=== PATIENT | female | born 1930 | race Caucasian/White ===

== ENCOUNTER 2016-05-09 14:29 | Outpatient (CLI) | payer MEDICARE, BC | END 2016-05-09 14:30 | disposition home or self-care (01) | DX: Z79.899 Other long term (current) drug therapy (principal) ==

== ENCOUNTER 2016-08-25 13:05 | Outpatient (CLI) | payer MEDICARE, BC | END 2016-08-25 23:59 | DX: Z79.899 Other long term (current) drug therapy (principal) ==

== ENCOUNTER 2016-12-26 08:00 | Outpatient (CLI) | payer MEDICARE, BC ==
[2016-12-26 18:34] LABS: CREATININE 0.8 mg/dL (0.4-1.0)
[2016-12-26 19:14] LABS: BASOPHILS % (AUTO) 0.3 %; EOSINOPHILS % (AUTO) 0.5 %; HCT - HEMATOCRIT 38.6 % (37.0-47.0); HGB - HEMOGLOBIN 12.6 g/dL (12.0-16.0); LYMPHOCYTES # (AUTO) 2.5 10^3/uL (1.5-3.5); LYMPHOCYTES % (AUTO) 33.6 %; MEAN CORPUSCULAR HGB CONC 32.6 g/dL (32.0-36.0); MEAN PLATELET VOLUME 7.7 fL (7.9-10.8); MONOCYTES # (AUTO) 0.4 10^3/uL (0.0-1.0); MONOCYTES % (AUTO) 6.2 %; NEUTROPHILS # (AUTO) 4.3 10^3/uL (1.5-6.6); NEUTROPHILS % (AUTO) 59.4 %; RED BLOOD COUNT 4.33 10^6/uL (4.20-5.40); UNCORRECTED WHITE BLOOD COUNT 7.3 x10^3/uL; WHITE BLOOD COUNT 7.3 x10^3/uL (4.8-10.8)
== END 2016-12-26 08:01 | disposition home or self-care (01) ==
LOC: LAB.F 08:00
PROVIDERS: ATTEND Internal Medicine Rheumatology
DX: Z79.899 Other long term (current) drug therapy (principal)
CPT/HCPCS: 36415; 82040; 82565; 84450; 84460; 85025

== ENCOUNTER 2017-02-20 14:30 | Outpatient (CLI) | payer MEDICARE, BC ==
--- NOTE | 2017-02-20 19:47 | CONSULTATION NOTE ---
Palliative Care Consultation - Referral Referring Provider: Dr. Godfrey Casillas Time of Visit: 3262-8657 Referral setting: Home (It is a taxing and considerable effort for the patient to leave the home secondary to limited mobility and dementia) Referral Reason: Dementia - Information Sources Records reviewed: Previous records reviewed History/Review of Systems obtained from: Family ( Jeff) Exam limitations: Clinical condition (patient nonverbal and unable to participate in ROS) - History of Present Illness Brief History of Present Illness: Thank you Dr. Casillas for asking the Palliative Care Consult Team to be involved in with your patient. Established rapport and evaluation of care needs. Will follow for ongoing support. This is an 86 year old woman who presents today with advanced Alzheimers, Stage 7C. Patient is nonverbal, though does make eye contact, on good days follow cues for transfers, is able to pivot and take a few steps, on bad days less able to follow commands. Patient has been incontinent of bowel and bladder for about 2 years, still does some time toileting with her. She also needs feeding, this has been for the last 2-3 years, occasionally choking if doesn't pace feeding, but other coker has not noted any pocketing. Patient with out neuropsychiatric behaviors of agitation, anxiety, no history of wandering, and is cooperative with care. Last verbal words in August of 2016, "good night" and "see you in the morning" in response to . She does sleep through the night. Patient has "essential tremors" noted tremors upper extremities right greater than left. Patient has some restless movements through visit, in transfer wheelchair, weight shifting, taking feet on and off pedals, reports she "wiggles" down when seated in chairs. On exam right side is stiff, limited range of motion of right arm, right leg more difficult to move, denies patient has had strokes in past though this has been present for a while. Patient does some "squinting" has her wear sunglasses when out, rubs head, gets hair washed every two weeks. Unclear if patient communicating any pain behaviors. is quite devoted, they have been over 69 years, is primary caregiver with assistance from daughter who visits about monthly. Medical/Surgical History - Past Medical History Cardiovascular: reports: None Respiratory: reports: None Neuro: reports: Dementia, Tremors (essential tremors/parkinsonism) Endocrine/Autoimmune: reports: HyPOthyroidism GI: reports: GERD, Other (intermittent constipation) HOSPICE AIDE: reports: Other (unknown) : reports: Incontinence HEENT: reports: Chronic vision loss Psych: reports: None. denies: Depression, Anxiety Musculoskeletal: reports: None Derm: reports: None MRSA Hx?: No - Past Surgical History Ortho: reports: Spine surgery - Substance History Use: Uses substance without health or social issues: NONE Social History - Living Situation Living arrangement: At home Living Situation: With spouse/s.o. Support System: Has been primary caregiver, he himself is quite elderly but in reasonable health. His daughter visits monthly to provide some assistance. There is changed for many years from their son. Currently working with senior services to get 4 hours a respite a week. Is reticent to give up any of his caregiving duties. 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 Family History - Family History Family History: Mother: (both in their 90's of old age), Father: Medications/Allergies - Medications Home Medications: Ambulatory Orders Medication Instructions Recorded Confirmed Sammy Cit/Mag/D3/Zn/Gas Fitter Helper/Ferdinand/Bor 1 tab PO DAILY 02/20/17 02/20/17 [Citracal-Vit D + Magnesium Tab] Cholecalciferol (Vitamin D3) 2,000 units PO DAILY 02/20/17 02/20/17 [Vitamin D3] Donepezil HCl 20 mg PO DAILY 02/20/17 02/20/17 Levothyroxine Sodium 50 mcg PO DAILY 02/20/17 02/20/17 Mecobalamin [B-12] 1,000 mcg PO DAILY 02/20/17 02/20/17 Multivitamin W/Minerals [Theragran 1 tab PO DAILY 02/20/17 02/20/17 M] Omeprazole 20 mg PO DAILY 02/20/17 02/20/17 Primidone [Mysoline] 50 mg PO DAILY 02/20/17 02/20/17 Propranolol HCl [Innopran Xl] 120 mg PO BID 02/20/17 02/20/17 [address]ulfasalazine [Sulfasalazine Dr] 500 mg PO BID 02/20/17 02/20/17 - Allergies Allergies/Adverse Reactions: Allergies Allergy/AdvReac Type Severity Reaction Status Date / Time No Known Drug Allergies Allergy Verified 02/20/17 20:00 Review of Systems - Constitutional Constitutional: reports: Weight gain ( reports has gained weight over the last few years) - Eyes Eyes: reports: Corrective lenses (doesn't wear) - Ears, Nose & Throat Ears, Nose & Throat: reports: Other (dental hygienist provides care 3x a week, home visit) - Respiratory Respiratory: denies: Cough - Gastrointestinal Gastrointestinal: reports: Constipation (intermittent), Good appetite - Genitourinary Genitourinary: reports: Incontinence - Musculoskeletal Musculoskeletal: reports: Stiffness, Limited range of motion, Transfer issues - Integumentary Integumentary: reports: Dryness - Neurological Neurological: reports: General weakness, Memory problems - Psychiatric Psychiatric: denies: Depression, Anxiety, Delusions, Hallucinations, Aggitation , Behavior disturbances - Endocrine Endocrine: reports: Hypothyroidism - Hematologic/Lymphatic Hematologic/Lymphatic: denies: Recurrent infections - All Other Systems All Other Systems: reports: Reviewed and negative - Other Findings Other Findings: ROS supplied by Physical Exam - Vital Signs Temperature: 98.2 C Pulse Rate: 59 Respiratory Rate: 18 O2 Saturation: 99 (ra@rest) Blood Pressure: 108/52 - Physical Exam General Appearance: positive: No acute distress, Alert Eyes Bilateral: positive: Conjunctivae nml ENT: positive: No signs of dehydration Neck: positive: Trachea midline Cardiovascular: positive: Regular rate & rhythm Respiratory: positive: Diminished in bases. negative: Wheezes, Rales, Rhonchi Abdomen: positive: Soft, Nml bowel sounds Skin: positive: No symptoms Extremities: positive: No pedal edema, Other (right sided stiffness limited ROM) Neurologic/Psychiatric: positive: Weakness, Flat affect Palliative Care - POLST Patient has POLST: Yes POLST Status: DNR, Limited Interventions (antibiotics if life can be prolonged; no medical nutrition) Pain: Pain unchanged, Comment ( has not noted any pain behaviors) Sleep: Sleeps well Constipation: Intermittent constipation Performance Status: Patient totally dependent for care for toileting, provides bedbath daily , feeds patient and very difficult for him to get her out of the home. They have had two falls which have not resulted in injury. - Palliative Care Discussion: Jeff reports they have been 69 years, is very devoted to Savannah, and wants to take care of her at home for as long as he can. He cannot define what the threshold would be that would make this not workable, currently she can be transferred and managed in the home, I suspect if patient were bedbound this might challenge his current capability. In introducing further defining their goals to add to the POLST in home. This was originally signed by the patient in 2011, DNAR/Limited interventions. In helping him to see the need for stepping back about what is important at this point, he does want to focus on her comfort, he would treat reversible conditions even if this included possible ED/hospitalization, though did introduce the concept of benefit and burdens given her current condition, and introduced possibly exploring a plan for end of life including hospice. Provided some gentle anticipatory guidance and will revisit in future visits. His life is very much consumed with her and with her caregiving. Impression and Recommendations - Palliative Care Impression: This is a 86 year old woman with Advanced Alzheimer's Stage 7C, she has not had any hospitalizations, weight loss, recurrent infections but is high fall risk. Symptom burden is minimal, but caregiving needs high, as well as caregiver burden. Discussion of goals initiated, counseling for caregiver stress, and anticipatory guidance needs. Recommendations/Counseling Done: 1. Intermittent constipation, unspecified. Counseling regarding bowel program, using Miralax intermittently with "blow outs" inst. to use 1/4-1/2 cap daily and titrate to daily soft BM, reviewed diet and encouraged daily oatmeal and more fiber as well. 2. Dementia without behavioral disturbances. Anticipatory guidance, review of patient's decline, increasing care needs, and counseling provided. 3. Rheumatoid Arthritis. Needing regular blood draws for monitoring, increase difficulty getting out for labs, will schedule next visit for labs/follow up with if others needed as well, due about 03/13. 4. Advanced Care Planning. Counseling and initiation of goals of care, will have Palliative Care Shot Peening Operator see later, currently working with Senior Services, not wanting to overwhelm . Currently only scheduled to receive 4 hours of weekly care, very reticient to accept other caregivers for . Counseling on helping Savannah adjust for future by allowing this assistance as well. Will get DPOA for HIM, copy of POLST filled in goals and DPOA/daughter's contact, put on fridge. 5. Health maintenance. Flu shot given left upper arm without reaction/consent obtained. Time Spent: 75 minutes with greater than 50% done in counseling for disease progression/ anticipatory guidance, goals of care, coordination for labs/flu shot.
== END 2017-02-20 14:31 | disposition home or self-care (01) ==
LOC: PC 14:30
PROVIDERS: ATTEND Nurse Practitioner Adult Health
DX: Z51.5 Encounter for palliative care (principal); G30.8 Other Alzheimer's disease; F02.80 Dementia in other diseases classified elsewhere, unspecified severity, without behavioral disturbance, psychotic disturbance, mood disturbance, and anxiety; M06.9 Rheumatoid arthritis, unspecified; K59.09 Other constipation; G25.0 Essential tremor; R32 Unspecified urinary incontinence; H54.7 Unspecified visual loss; Z66 Do not resuscitate
CPT/HCPCS: 99345

== ENCOUNTER 2017-03-12 10:37 | Outpatient (CLI) | payer MEDICARE, BC | END 2017-03-12 10:38 | disposition EMS.NT | LOC: EMS 10:37 | PROVIDERS: ATTEND Surgery | DX: Z03.89 Encounter for observation for other suspected diseases and conditions ruled out (principal); W18.39XA Other fall on same level, initial encounter; Y92.003 Bedroom of unspecified non-institutional (private) residence as the place of occurrence of the external cause ==

== ENCOUNTER 2017-03-14 13:30 | Outpatient (CLI) | payer MEDICARE, BC ==
--- NOTE | 2017-03-14 19:51 | CONSULTATION NOTE ---
Palliative Care Follow Up - Referral Referring Provider: Dr. Godfrey Casillas Time of Visit: [id number] Referral setting: Home (Patient is seen in the home setting seconds considerable and taxing effort for the patient to leave the home, this is related to her dementia and wheelchair bound status.) Referral Reason: Dementia - Information Sources Records reviewed: Previous records reviewed History/Review of Systems obtained from: Family (daughter and ) Exam limitations: Clinical condition (patient nonverbal) - History of Present Illness Update Brief HPI Update: This is an 86-year-old woman who presents with advanced Alzheimer's, FAST Stage 7C.Patient is nonverbal, though can make eye contact, she is mostly a pivot transfer from bed to wheelchair, wheelchair to chair, and most recently slipped during at transfer with . This necessitated a call to 911 for lift assist. He does at times Use his neighbors for assistance secondary to increasing difficulty managing her. She does have fluctuations as far as ability to use stand, take a few steps to pivot, as well as follows directions. So far, she has had noninjury "slips". And I am concerned about injury from both her and her . She does not have any neuropsychiatric behaviors. Daughter is present for visit today, she is able to identify increasing signs of decline including difficulty at times of choking, difficulty with pills, and recognizing functional decline as well. She tends to see these changes that she is coming [id number]. Patient does have upper extremity tremors right greater than left, she does have stiffness on her right side. Social History - Living Situation Living arrangement: At home Living Situation: With spouse/s.o. Support System: [facility] was actually finally able to set up shift one time times a week, with first visit tomorrow. Has been does appear quite fatigued, the daughter and her do try to provide respite while they visit. Medications/Allergies - Medications Home Medications: Ambulatory Orders Medication Instructions Recorded Confirmed Cholecalciferol (Vitamin D3) 2,000 units PO DAILY 02/20/17 02/20/17 [Vitamin D3] Donepezil HCl 20 mg PO DAILY 02/20/17 02/20/17 Levothyroxine Sodium 50 mcg PO DAILY 02/20/17 02/20/17 Mecobalamin [B-12] 1,000 mcg PO DAILY 02/20/17 02/20/17 Multivitamin W/Minerals [Theragran 1 tab PO DAILY 02/20/17 02/20/17 M] Omeprazole 20 mg PO DAILY 02/20/17 02/20/17 Primidone [Mysoline] 50 mg PO DAILY 02/20/17 02/20/17 Propranolol HCl [Innopran Xl] 120 mg PO BID 02/20/17 02/20/17 Sulfasalazine [Sulfasalazine Dr] 500 mg PO BID 02/20/17 02/20/17 - Allergies Allergies/Adverse Reactions: Allergies Allergy/AdvReac Type Severity Reaction Status Date / Time No Known Drug Allergies Allergy Verified 02/20/17 20:00 Review of Systems - Constitutional Constitutional: reports: Weight stable (appears weight neutral) - Ears, Nose & Throat Ears, Nose & Throat: reports: Other (daughter notes patient with increasing difficulty with swallowing) - Respiratory Respiratory: reports: Cough (some choking with eating) - Gastrointestinal Gastrointestinal: reports: Good appetite. denies: Constipation - Genitourinary Genitourinary: reports: Incontinence (timed toileting can be continent) - Musculoskeletal Musculoskeletal: reports: Transfer issues (has to call EMS Monday for assist; more difficult transfers) - Integumentary Integumentary: reports: Pruritis (reports scratching on top of head; unable to get out to hairdresser) - Neurological Neurological: reports: Memory problems, Other (nonverbal) - Psychiatric Psychiatric: reports: Other (rocking movements; "squirms") - Endocrine Endocrine: reports: Hypothyroidism - Hematologic/Lymphatic Hematologic/Lymphatic: denies: Recurrent infections - All Other Systems All Other Systems: reports: Reviewed and negative - Other Findings Other Findings: ROS done with and daughter Physical Exam - Vital Signs Temperature: 96.7 C Pulse Rate: 66 Respiratory Rate: 18 O2 Saturation: 96 (ra@ rest) Blood Pressure: 92/62 - Physical Exam General Appearance: positive: Anxious Eyes Bilateral: positive: Normal inspection ENT: positive: No signs of dehydration Neck: positive: Trachea midline. negative: Lymphadenopathy (R), Lymphadenopathy (L) Cardiovascular: positive: Regular rate & rhythm Respiratory: positive: Diminished in bases. negative: Wheezes, Rales, Rhonchi Abdomen: positive: Non-tender, Soft Skin: positive: Dryness (on top of scalp; just had hair cleaned but suspect "cradle cap" from hygiene; to start new caregiver tomorrow; recommended bed bath kit for hairwash) Extremities: positive: No pedal edema Neurologic/Psychiatric: positive: Mood/affect nml, Other (nonverbal; not much eye contact unless I make effort; occasional smile; does seem to be listening at times but does not follow direction; nonambulatory) Palliative Care - POLST Patient has POLST: Yes Pain: Comment (Both daughter and has been unable to identify any pain behaviors , discussion regarding unable to get RA doctor,Either no her baseline pain from her rheumatoid arthritis, daughter thought it may be was her hands at one time.) Constipation: No, Comment (Constipation better managed with intermittent MiraLAX , she is moving her bowels every 2-3 days.) Performance Status: Has been willing to consider home health therapy eval and intervention now. Discussed physical therapy for transfer training, equipment recommendations, and range of motion. Discussed occupational therapy as patient unable to get in for hair care, ease of dressing, as well as new caregiver may be able to shower. Currently they are bed bath in her in addressing daughter's concerns, regarding increased trouble with eating, swallowing pills, and concern for aspiration pneumonia. Did agree speech therapy in the context of caregiver training, diet recommendations, and safety. - Palliative Care Discussion: Opportunity to talk to daughter prior to returning from walking dog. She does express concern regarding caregiver fatigue and burden. She does come monthly to try and provide support and respite for her father, but is concerned regarding his advanced age and increasing health problems himself has sustainable this is. She is wanting to support them in their goals to remain at home. Discussion together again regarding adjusting daughter's concerns around planning for end of life. We did discuss currently patient does not meet criteria for hospice, patient without weight loss, no recurrent infections, though she has had some functional decline and it would not be a surprise if she continued her past the next 6 months, she does not quite fit the "type box" have Medicare criteria for dementia. In the context of concern for her functional decline and father able to care for her at home, I did encourage him to visit the memory care units [place]. We did review some creative ways to think about long-term care planning, including transition a memory care short/ [facility] and end-of-life can transition home for hospice. We also reviewed the natural trajectory of the disease including but not limited to sequela of a fall, aspiration pneumonia, decreased intake and failure to thrive. Impression and Recommendations - Palliative Care Impression: This is an 86-year-old woman with Alzheimer's, stage VIIc, she is having increased difficulty with transfers, some concerns regarding choking and diet, and recent fall necessitating lift assist. Identified symptom burden is minimal , but caregiving needs are high, has been willing to consider assistance of the home health team for recommendations to ease caregiver distress. Family conference facilitated with daughters visit today. Recommendations/Counseling Done: 1. Intermittent constipation, unspecified. They are using intermittent MiraLAX with some success. 2. Dementia without behavioral disturbances. Family counseling done for anticipatory guidance, with review of patient's expected decline, increasing care needs. 3. Rheumatoid arthritis. Labs drawn will facilitate conversation with Dr. Jackson regarding patient's unable to further come in for visits. Concern also regarding pill burden, will see if her medication comes in liquid. 4. Dysphagia. Will initiate home health services including speech therapy referral for diet textures, aspiration precautions, and anticipatory guidance. Recommended soft mechanical diet, and thicker fluids. 5. Advanced care planning. Reviewed again continuum of care with both and daughter. Currently to initiate respite care through [facility]. Discussed the role of the medical palliative care professor of social work, will have her coordinate next month with daughter's visit. Time Spent: 60 minutes with greater than 50% of this done in counseling and coordination of care initiation of home health referral with PT for caregiver training, transfer training, equipment needs; OT for ADL management and recommendations for bathing; and speech therapy as noted above. Labs drawn will CC to Dr. Mitchell and Dr. Perez
== END 2017-03-14 13:31 | disposition home or self-care (01) ==
LOC: PC 13:30
PROVIDERS: ATTEND Nurse Practitioner Adult Health
DX: Z51.5 Encounter for palliative care (principal); G30.9 Alzheimer's disease, unspecified; F02.80 Dementia in other diseases classified elsewhere, unspecified severity, without behavioral disturbance, psychotic disturbance, mood disturbance, and anxiety; K59.00 Constipation, unspecified; M06.9 Rheumatoid arthritis, unspecified; R13.10 Dysphagia, unspecified; Z99.3 Dependence on wheelchair
CPT/HCPCS: 99350

== ENCOUNTER 2017-03-14 14:30 | Outpatient (CLI) | payer MEDICARE, BC ==
[2017-03-14 16:21] LABS: BASOPHILS % (AUTO) 0.4 %; EOSINOPHILS # (AUTO) 0.1 10^3/uL (0.0-0.7); HCT - HEMATOCRIT 39.2 % (37.0-47.0); HGB - HEMOGLOBIN 12.8 g/dL (12.0-16.0); LYMPHOCYTES # (AUTO) 2.1 10^3/uL (1.5-3.5); LYMPHOCYTES % (AUTO) 36.5 %; MEAN CORPUSCULAR HEMOGLOBIN 29.7 pg (27.0-31.0); MEAN CORPUSCULAR HGB CONC 32.7 g/dL (32.0-36.0); MEAN CORPUSCULAR VOLUME 90.7 fL (81.0-99.0); MEAN PLATELET VOLUME 7.7 fL (7.9-10.8); MONOCYTES # (AUTO) 0.4 10^3/uL (0.0-1.0); MONOCYTES % (AUTO) 6.5 %; NEUTROPHILS # (AUTO) 3.2 10^3/uL (1.5-6.6); NEUTROPHILS % (AUTO) 55.6 %; NUCLEATED RED BLOOD CELLS AUTO 0.1 /100WBC; RED BLOOD COUNT 4.32 10^6/uL (4.20-5.40); RED CELL DISTRIBUTION WIDTH 14.3 % (12.0-15.0); UNCORRECTED WHITE BLOOD COUNT 5.8 x10^3/uL; WHITE BLOOD COUNT 5.8 x10^3/uL (4.8-10.8)
[2017-03-14 16:45] LABS: ALBUMIN/GLOBULIN RATIO 1.9 (1.0-2.2); BILIRUBIN,TOTAL 0.4 mg/dL (0.2-1.0); CALCIUM 9.9 mg/dL (8.5-10.3); CREATININE 0.8 mg/dL (0.4-1.0); POTASSIUM 3.8 mmol/L (3.5-5.0)
== END 2017-03-14 14:31 ==
LOC: LAB.R 14:30
PROVIDERS: ATTEND Nurse Practitioner Adult Health
DX: Z79.899 Other long term (current) drug therapy (principal)
CPT/HCPCS: 80053; 85025

== ENCOUNTER 2017-05-05 16:19 | Outpatient (CLI) | payer MEDICARE, BC ==
--- NOTE | 2017-05-05 16:56 | CONSULTATION NOTE ---
Palliative Care Follow Up - Referral Referring Provider: Dr. Godfrey Casillas Time of Visit: 2364-6168 Referral setting: Home (The taxing and considerable effort for the patient to leave the home secondary to dementia she is mostly wheelchair bound pivoting only) Referral Reason: Dementia - Information Sources Records reviewed: Previous records reviewed History/Review of Systems obtained from: Family ( Jeff provided review) Exam limitations: Clinical condition (Patient nonverbal and unable to participate in exam) - History of Present Illness Update Brief HPI Update: This is an 86-year-old woman who presents with advanced Alzheimer's, FAS T space stage VII C. Patient is nonverbal, she is mostly a pivot transfer from bed to wheelchair and wheelchair to chair. She is nonverbal, she is incontinent of both bowel and bladder, she is still eating though, without any signs or symptoms of choking but is pocketing food. She does not have any neuropsychiatric behaviors, though she does occasionally appear anxious. It does appear she continues to have small little changes, is able to see this, but remains hopeful to keep her at home as long as possible. He did describe an incident yesterday, that sounds like it might have been a small TIA. This occurred similar around Mary time. Where she "spaced out" and was nonresponsive but did recover within a short period of time. Today I find her quite engaged, making eye contact, following myself through the exam, is very responsive to her as well. Social History - Living Situation Living arrangement: At home Living Situation: With spouse/s.o. (has been almost 69 years, devoted elderly with health problems himself; has caregiver once a week now, working out well does bathing/hairwash/nails etc. Daughter comes every 6-8 weeks for support) Medications/Allergies - Medications Home Medications: Ambulatory Orders Medication Instructions Recorded Confirmed Cholecalciferol (Vitamin D3) 2,000 units PO DAILY 02/20/17 05/05/17 [Vitamin D3] Donepezil HCl 20 mg PO DAILY 02/20/17 05/05/17 Levothyroxine Sodium 50 mcg PO DAILY 02/20/17 05/05/17 Mecobalamin [B-12] 1,000 mcg PO DAILY 02/20/17 05/05/17 Omeprazole 20 mg PO DAILY 02/20/17 05/05/17 Primidone [Mysoline] 50 mg PO 0900 02/20/17 05/05/17 Propranolol HCl [Innopran Xl] 120 mg PO BID 02/20/17 05/05/17 Methylprednisolone [Medrol] 10 mg PO DAILY 05/05/17 05/05/17 Primidone 100 mg PO DAILY PM 05/05/17 05/05/17 - Allergies Allergies/Adverse Reactions: Allergies Allergy/AdvReac Type Severity Reaction Status Date / Time No Known Drug Allergies Allergy Verified 02/20/17 20:00 Review of Systems - Constitutional Constitutional: reports: Weight stable (reports daughter thinks clothes might be a bit looser; no noticable gross weight loss) - Gastrointestinal Gastrointestinal: reports: Constipation (resolved with Mirlax yesterday;), Good appetite - Genitourinary Genitourinary: reports: Incontinence (both bowel and bladder) - Musculoskeletal Musculoskeletal: reports: Limited range of motion (right sided weakness) - Integumentary Integumentary: reports: Dryness, Hair changes (thinning of hair) - Neurological Neurological: reports: General weakness, Other (nonverbal; can still follow cues from with transfers; eyes move to speaker; appears to be engaged when spoken to) - Psychiatric Psychiatric: denies: Behavior disturbances - Endocrine Endocrine: reports: Hypothyroidism - Hematologic/Lymphatic Hematologic/Lymphatic: denies: Recurrent infections Physical Exam - Vital Signs Temperature: 98.3 C Pulse Rate: 72 Respiratory Rate: 18 O2 Saturation: 95 (ra@rest) Blood Pressure: 102/64 - Physical Exam General Appearance: positive: No acute distress, Other ("wriggles" through visit ; tends to scoot down in chair) Eyes Bilateral: positive: Normal inspection ENT: positive: No signs of dehydration Neck: positive: No JVD, Trachea midline. negative: Lymphadenopathy (R), Lymphadenopathy (L) Cardiovascular: positive: Regular rate & rhythm Respiratory: positive: Breath sounds nml Abdomen: positive: Non-tender, Soft, Nml bowel sounds Skin: positive: Pallor Extremities: positive: No pedal edema, Other (leans to right; right arm no spontanseous movement; slight wrist/hand contracture; right leg without movement ; left leg moving all around) Neurologic/Psychiatric: positive: Other (smiles constantly) Palliative Care - POLST Patient has POLST: Yes POLST Status: DNR, Selective Treatment Pain: No pain, Comment (Switch to rheumatoid arthritis medications, no noticeable signs or symptoms of pain or discomfort with , patient easily examined no signs of discomfort on exam. Patient does appear to be tolerating this without difficulty, has been is grateful does not further require blood draws. Transition has been smooth and patient presents without symptoms.) Sleep: Sleeps well Constipation: Yes, Intermittent constipation Feelings of wellbeing/Perceived Quality of Life: Fair, Acceptable (notes small changes; feels for both current situation is "doable") Performance Status: And noted changes from last visit, patient with increased incontinence no longer toileting. She is not able to sit with out supervision and concern about falls. She did see the speech therapist, and they are using nectar thick liquids, but does notice that she is pocketing food. He is following instructions for aspiration precautions. They are still able to do a bit of a pivot transfer, she does follow directions. But is very slow, and is taking longer. He is very concerned at the point he is no longer able to transfer her from the different settings, as far as being able to meet her needs. - Palliative Care Discussion: reports he had to call 911 a couple nights ago, he had a throbbing in his calf and thought perhaps he had a blood clot. He is quite frightened more so in the context of having to leave AMA behind and having no plan. We did use this as a starting point for a conversation about the "what if". His health is okay right now though he has had lots of workup. He is concerned though about what would happen if something were to happen to him. He does have [employer], he feels a neighbor would come stay with her and he has several he could call. We did discuss at least visiting [facility] and home place they do have a respite program, if there were to be some immediate need for meeting her care needs. His daughter is due to come in 2 weeks, we did discuss this would also give an opportunity for him to see about "the next step". He is very realistic at the point in time that she is total care, he is not going to be able to manage her, this is with great sadness, he wants to do this as long as possible. Impression and Recommendations - Palliative Care Impression: This is an 86-year-old woman with advanced Alzheimer's, FAS T stage VIIc. She is currently being managed home by her , who is now engaged some respite care at least weekly. He does find this of help. He is looking to the future, and the threshold at which time he will no longer be able to care for her. He perceives for both of them, currently their quality of life is acceptable. Recommendations/Counseling Done: 1. Dementia. Patient has had some decline, remains fairly weight neutral. They are following through with suggestions from speech therapy, she does have some pocketing. Multiple suggestions from therapist regarding equipment, reviewed suggestions, they do have some limitations as far as doorways. Did encourage follow-through on a lift chair, and explore a tilt in space wheelchair. 2. Rheumatoid arthritis. Patient is tolerating the transition from sulfasalazine to methylprednisone without any difficulty, no increased signs or symptoms of disease exacerbation or pain. 3. Constipation. Patient has had intermittent constipation, has been has been instructed on MiraLAX use several times, he is now convinced that he is needs to use it on a regular basis, we discussed again titrating to effect. 4. Advanced care planning. did have quite a scare this week, is willing to consider at least an introduction to [facility] are home place for respite care and possible future placement. His daughter is due to come in 2 weeks. I will send him the information to be able to make appointments. He will call if there is any further needs or concerns, agreed to check again in another 2 months. Time Spent: Time spent 45 minutes with greater than 50% of this done in counseling regarding long-term planning, anticipatory guidance, as well as reiterated safety measures provided by rehab therapy.
== END 2017-05-05 16:20 | disposition home or self-care (01) ==
LOC: PC 16:19
PROVIDERS: ATTEND Nurse Practitioner Adult Health
DX: Z51.5 Encounter for palliative care (principal); G30.9 Alzheimer's disease, unspecified; F02.80 Dementia in other diseases classified elsewhere, unspecified severity, without behavioral disturbance, psychotic disturbance, mood disturbance, and anxiety; M06.9 Rheumatoid arthritis, unspecified; K59.00 Constipation, unspecified; Z99.3 Dependence on wheelchair; M62.81 Muscle weakness (generalized); R32 Unspecified urinary incontinence; R15.9 Full incontinence of feces; Z66 Do not resuscitate
CPT/HCPCS: 99349

== ENCOUNTER 2017-06-05 16:15 | Outpatient (CLI) | payer MEDICARE, BC ==
--- NOTE | 2017-06-06 09:00 | CONSULTATION NOTE ---
Palliative Care Follow Up - Referral Referring Provider: Dr. Casillas Time of Visit: [id number] Referral setting: Home Referral Reason: Candidiasis of skin/Dementia/RA - Information Sources Records reviewed: Previous records reviewed History/Review of Systems obtained from: Family ( Jeff providing ROS) Exam limitations: Clinical condition (patient nonverbal) - History of Present Illness Update Brief HPI Update: This is an 86-year-old woman who presents with advanced Alzheimer's FAST 7C, Patient is nonverbal, she is a pivot transfer from bed to wheelchair and wheelchair to chair. She is incontinent of both bowel and bladder, she continues to eat without any symptoms of choking but is occasionally pocketing food. She does not have any neuropsychiatric behaviors though does intermittently appear anxious. I received a call from her today quite distressed as she had purple wounds in her right groin. On arrival patient does have significant candidiasis, she has been scratching in the right groin area, it is swollen but only slightly opened. Areas are about 2 x 2 cm, has more diffuse rash through perineum and perineal area. She is more incontinent, he is unable to toilet her anymore, and with his increased back pain I suspect he is not changing or is frequently. Reassured him it was a rash, that we can treat and should clear up within the next couple weeks. She also though does have some pressure points on her upper coccyx lumbar area as she slides down in the chair, he has been quite resistant to any change the home health rehab team had recommended, has his own way of doing things. Of concern he did have a trip to the ER, did discuss the need for a plan B if he were not able to be her caregiver, at least for respite care and placement. He is in agreement but his daughter is not visiting again until June. Social History - Living Situation Living arrangement: At home Living Situation: With spouse/s.o. (has paid caregiving one time a week; considering [facility]) Medications/Allergies - Medications Home Medications: Ambulatory Orders Medication Instructions Recorded Confirmed Cholecalciferol (Vitamin D3) 2,000 units PO DAILY 02/20/17 06/06/17 [Vitamin D3] Donepezil HCl 20 mg PO DAILY 02/20/17 06/06/17 Levothyroxine Sodium 50 mcg PO DAILY 02/20/17 06/06/17 Mecobalamin [B-12] 1,000 mcg PO DAILY 02/20/17 06/06/17 Omeprazole 20 mg PO DAILY 02/20/17 06/06/17 Primidone [Mysoline] 50 mg PO 0900 02/20/17 06/06/17 Propranolol HCl [Innopran Xl] 120 mg PO BID 02/20/17 06/06/17 Methylprednisolone [Medrol] 10 mg PO DAILY 05/05/17 06/06/17 Primidone 100 mg PO DAILY PM 05/05/17 06/06/17 - Allergies Allergies/Adverse Reactions: Allergies Allergy/AdvReac Type Severity Reaction Status Date / Time No Known Drug Allergies Allergy Verified 02/20/17 20:00 Review of Systems - Constitutional Constitutional: reports: Weight stable - Ears, Nose & Throat Ears, Nose & Throat: reports: Other (gets oral care three times a week through dentist; denies difficulty noted swallowing unless feeds to quickly or big pills ) - Gastrointestinal Gastrointestinal: reports: Constipation (moving bowels about every few days), Good appetite - Genitourinary Genitourinary: reports: Incontinence - Musculoskeletal Musculoskeletal: reports: Limited range of motion, Muscle weakness, Transfer issues (very slow shuffle when transfers; needs time and cueing) - Integumentary Integumentary: reports: Rash - Neurological Neurological: reports: General weakness, Memory problems (nonverbal) Physical Exam - Vital Signs Temperature: 97.7 C Pulse Rate: 57 Respiratory Rate: 18 O2 Saturation: 95 (ra@ rest) Blood Pressure: 122/64 - Physical Exam General Appearance: positive: Alert, Other (frequent moving motions;) Eyes Bilateral: positive: Normal inspection ENT: positive: Other (won't open mouth;) Neck: positive: Other (slight cushingnoid look in face;) Cardiovascular: positive: Regular rate & rhythm Respiratory: positive: Diminished in bases Abdomen: positive: Non-tender, Soft, Nml bowel sounds Skin: positive: Rash (candidiasis noted in groin folds; "purple spots" in right groin where patient has been scratching; red and irritated), Pressure wound ( coccyx deep red upper lumbar area; scoots down in chair) Extremities: positive: No pedal edema Neurologic/Psychiatric: positive: Other (patient nonverbal; smiles easily; does make eye contact; appears to follow cues; responds to ;) Palliative Care - POLST Patient has POLST: Yes POLST Status: DNR, Selective Treatment Pain: Comment (does not appear painful with movement of joints/extremities; does appear uncomfortable with groin-reaching to scratch) Constipation: Intermittent constipation ( with short term memory issues; is marking BMs now this last week; had "blow out" yesterday; incontinent of bowel and bladder) Feelings of wellbeing/Perceived Quality of Life: Acceptable, Worsening ( able to acknowledge patient is declining slowly; remains steadfast in wanting to keep patient at home) Performance Status: Patient is still able to transfer with cueing, is a very slow and difficult process, has been recently was diagnosed with lumbar stenosis and is quite painful for him to provide provide this care but continues to be steadfast and not wanting to change his techniques, enlist any new equipment, or consider hiring help. He does have weekly bathing now that has been of help is to a respite program in the community. He did use the toilet her, now she is totally incontinent of both bowel and bladder, he does have difficulty particularly she is incontinent of stool. I would put her at a PPS of 40%. Does use neighbors for lift assist if patient unable to participate in transfers , has used 911 when necessary as well, he has a lifeline on. - Palliative Care Discussion: Discussed at length my concerns as far as Jeff being able to meet Savannah's needs, at the risk of his own health issues. He had been in the ER, and neighbor stayed with him during that period of time, the daughter called requesting resources as far as if it was to include an admission to the hospital, was given both home place and [facility]'s number. We did discuss previously he and his daughter were supposed to go visit those places, they are coming again in June requested that they at least visit them as respite stay areas. He currently is unable to afford significant amount of hours for care, he is in the process of working on a [employer] application, encouraged him strongly to finish application/process this even if he is not going to hire the help right away. His concern is that she will deteriorate at the point in time of transition into a dementia units, I would be in agreement with him as he does give meticulous care and attention to Savannah. He is afraid once she leaves the home, she will never return, we did broach though the topic of possibly at the time of her demise considering enlisting hospice and to bring him back home for at home. Impression and Recommendations - Palliative Care Impression: This is an 86-year-old woman with advanced Alzheimer's FAST 7C, she continues to show signs of slow decline. Today she presents with candidiasis of the skin , causing her increased distress. She does have high risk factors including steroid use and incontinence. Concern expressed related husbands recent health concerns impacting the caregiving situation, he is steadfastly committed to keeping her home. Recommendations/Counseling Done: 1. Candidiasis of skin.Will order a one-time dose of Diflucan 100 mg given the severity of the itching and concern for further breakdown. Did order and confirm right aid had fossa antifungal cream, counseling regarding use and application, as well as more frequent changes of her depends. Recommended tap versus pull on. After rash is cleared, instructed use, long barrier cream twice daily. These were written out for , he does have short-term memory issues as well, will revisit in a couple weeks improvement. 2. Rheumatoid arthritis. Patient does not exhibit any signs or symptoms of discomfort in her joints, had transition from Sulfasalazine to Methylprednislone to address swallowing and monitoring issues. Currently at 10 mg, will consider titrating down next visit. 3. Stage I decub coccyx. Inst. to get pressure relief cushion for chair in living room, provided information for ordering. 4 constipation. reticent to use MiraLAX on a regular basis regarding patient's bowel incontinence. He is now tracking though on a calendar, did encourage more frequently to use at a smaller dose, he will consider. 5. Advanced care planning. Did encourage him to complete the [facility] application either for increased care in the home or placement. Reviewed strong recommendation to evaluate home place versus [facility] versus [facility] for respite stay, concern about 's underlying health issues and need for immediate placement. remains committed to keeping patient at home as long as possible, will continue to provide palliative care support until transition to hospice. Time Spent: 45 minutes with greater than 50% of this done in counseling regarding management of skin, incontinence, and anticipatory guidance
== END 2017-06-05 16:16 | disposition home or self-care (01) ==
LOC: PC 16:15
PROVIDERS: ATTEND Nurse Practitioner Adult Health
DX: Z51.5 Encounter for palliative care (principal); B37.2 Candidiasis of skin and nail; M06.9 Rheumatoid arthritis, unspecified; L89.151 Pressure ulcer of sacral region, stage 1; K59.00 Constipation, unspecified; G30.9 Alzheimer's disease, unspecified; F02.80 Dementia in other diseases classified elsewhere, unspecified severity, without behavioral disturbance, psychotic disturbance, mood disturbance, and anxiety; M62.81 Muscle weakness (generalized); Z66 Do not resuscitate
CPT/HCPCS: 99349

== ENCOUNTER 2017-06-19 16:15 | Outpatient (CLI) | payer MEDICARE, BC ==
--- NOTE | 2017-06-19 18:29 | CONSULTATION NOTE ---
Palliative Care Follow Up - Referral Referring Provider: Dr. Casillas Time of Visit: 2923-4326 Referral setting: Home Referral Reason: AMS/Pneumonia/hypoxia - Information Sources Records reviewed: Previous records reviewed History/Review of Systems obtained from: Family ( Jeff provided information) Exam limitations: Clinical condition (patient nonverbal) - History of Present Illness Update Brief HPI Update: This is a 86-year-old woman who presents with advanced Alzheimer's FAST Stage 7C , Patient has been nonverbal for several months now, though she does appear to respond sometimes to command, previous to today patient had been able to pivot transfer with 's direction. She has been declining since I have seen her starting in January, she is now totally incontinent of bowel and bladder, she was having some increased difficulty with pocketing food, but up to this time had been able to manage to meet her nutritional needs. I got a call from her today, she had had lots of nasal congestion and drainage since yesterday, she had been eating somewhat her normal amounts, though this morning she woke up much more lethargic, refused to open her mouth or eat, and is continued to deteriorate through the day. Jeff her , when called, we discussed patient most likely has aspirated and concern for pneumonia, we have discussed sending her in for evaluation, he wanted an evaluation and had pretty much decided if this was her time, to keep her at home. I am here with patient, she is lethargic, she does arouse slightly with stimulation. I did assist with transfers and this did wake her up some. She does have a weak cough, no signs or symptoms of the nasal congestion he has been talking about. She does present as hypoxic with her O2 sats at rest running between 87 and 89%. She has hot to touch though her temperature registers at 98.8 she is a little tacky at 96 and her blood pressure 112/64. She has in the past had a couple of episodes that have looked like TIAs, but these have usually lasted as far as time periods of altered mental status about 30-40 minutes, this is been extended through the day. She is in the chair, they had neighbors come and help place her that way, she is unable to sit with any kind of strength. She does not appear in any kind of distress, but suspect patient has pneumonia at this point in time. He has not been able to give her any kind of her pills or medication. I did have her take a few sips of water, she did pocket this in her mouth, suspect she is not safe and less her level of consciousness improves to take any oral intake.Her past medical history has included tremors, hypothyroidism, GERD, chronic vision loss, and rheumatoid arthritis for which she was switched from sulfasalazine to methylprednisone, patient has not exhibited any pain behaviors can recall related to this. himself is quite frail, with her increased care needs over the last few weeks he has injured his right arm, this was as a result of her to being out of bed. He himself was diagnosed with stenosis, and her increasing care needs have become overwhelming. He is in the process of applying for hossein. He very much wants her to at home Social History - Living Situation Living arrangement: At home (Patient has recently started with respite care on Wednesdays, he is in the process of applying for hosesin. His daughter Lizzy Brody phone number [phone] is available to come help, she was coming from [place] in June but can move her to get up if needed. They do have a son, but are estranged.) Living Situation: With spouse/s.o. Medications/Allergies - Medications Home Medications: Ambulatory Orders Medication Instructions Recorded Confirmed Hyoscyamine [Levsin] 0.125 - 0.25 mg SL Q4HR PRN 06/19/17 06/19/17 LORazepam [Lorazepam Intensol] 0.25 mg SL Q4HR PRN 06/19/17 06/19/17 Morphine Sulfate [Morphine Sulf 5 mg SL Q4HR PRN 06/19/17 06/19/17 Oral (Roxanol)] - Allergies Allergies/Adverse Reactions: Allergies Allergy/AdvReac Type Severity Reaction Status Date / Time No Known Drug Allergies Allergy Verified 02/20/17 20:00 Review of Systems - Constitutional Constitutional: reports: Fatigue, Fever (has felt hot to touch to last 24 hours) - Ears, Nose & Throat Ears, Nose & Throat: reports: Nasal congestion - Respiratory Respiratory: reports: Cough ( has not noticed; observed weak at visit) - Gastrointestinal Gastrointestinal: reports: Other (has had good intake though some decrease and difficulty with pocketing and needs to pace feeding. Did not eat breakfast and not fluid intake today) - Genitourinary Genitourinary: reports: Incontinence - Musculoskeletal Musculoskeletal: reports: Stiffness, Limited range of motion (right sided weakness; not new), Transfer issues (patient unable to bear weight; this is new ; full lift for transfer unable to do new) - Integumentary Integumentary: reports: Rash (improved) - Neurological Neurological: reports: General weakness, Memory problems - Endocrine Endocrine: reports: Intolerance to cold - Hematologic/Lymphatic Hematologic/Lymphatic: reports: Recurrent infections (recent candidasis rash; no hx of pneumonia or utis) - Other Findings Other Findings: limited ROS Physical Exam - Vital Signs Temperature: 98.8 C Pulse Rate: 96 Respiratory Rate: 20 (nonlabored) O2 Saturation: 87 (to 89 ra @ rest) Blood Pressure: 112/64 - Physical Exam General Appearance: positive: No acute distress, Lethargic. negative: Anxious Eyes Bilateral: positive: Normal inspection ENT: positive: Other (will not open mouth) Neck: positive: No JVD, Trachea midline. negative: Lymphadenopathy (R), Lymphadenopathy (L) Cardiovascular: positive: Irregularly irregular, Tachycardia, Diastolic murmur Respiratory: positive: Diminished in bases (very quiet right lower lobe), Other (weak cough when positioned in bed; had to elevate pillows). negative: Wheezes , Rales, Rhonchi Abdomen: positive: Non-tender, Soft Skin: positive: Rash (slightly reddened in groin folds; much improved no active lesions; some scarring on coccyx;no open areas) Extremities: positive: No pedal edema, Other (unable to bear weight with transfers) Neurologic/Psychiatric: positive: Weakness, Flat affect Palliative Care - POLST Patient has POLST: Yes POLST Status: DNR, Comfort Measures (redid POLST with comfort care goals) Pain: No pain Performance Status: Previously had been able to tolerate a stand and pivot transfer, actually follow some directions as far as assisting . I did dress her in her pajamas, she did attempt to help as far as putting on her pajamas. She has a very sweet demeanor, did not seem upset or distressed during some less than perfect transfers. She was essentially a total lift. Has been is unable to do this at this point in time, and is very difficult for him to assist. She is totally incontinent of bowel and bladder, her current set up does not allow changing her depends without a great deal difficulty. He has needed to feed her , and is totally dependent for all ADLs. - Palliative Care Discussion: Previous to my arrival, it does appear is continued to weigh benefits and burdens about how best to proceed. We did discuss in the context of her current situation, she most likely had another event, and/or is presenting with aspiration pneumonia secondary to her hypoxia and descriptions of difficulties with secretions yesterday. She is warm to touch, she does not appear in any kind of distress, he has been a devoted caregiver and his biggest fear has been her dying somewhere other than at home. We did discuss definitively center in, we may be faced with the same situation 2 weeks from now, as well as most likely she would not be able to return home. Counseling provided regarding hospice, has been very much would like to try this, he does not have 24 7 care, but if she were to be in a hospital bed and have a Strong catheter with us for the hospice team may be able to meet his goals. I did speak at length with him and also with his daughter, she is in support of keeping patient home, focusing on comfort. It is unknown at this moment if patient is going to improve a little, or continue to decline fairly rapidly. If she does improve, or plateaus , will need to pursue hossein application and increased help in the home, daughter is able to come if needed, she will await hospice admission and see how patient does over the next 24-48 hrs. is quite tearful, but very determined to have [place] at home, does have neighbors who can help with turning or repositioning if needed. Consulted with primary care provider Dr. Casillas, supportive of husbands/families goals and will send hospice order. RENE HUERTA return to reflect current goals and copy left in the home. Impression and Recommendations - Palliative Care Impression: This is an 86-year-old woman with advanced Alzheimer's FAST space 7C, who presents with an acute change in her status, she has been having ongoing slow decline. Patient presents as lethargic, warm to touch, has hypoxia, and a weak cough as well as change in respiratory status. She is at high risk for aspiration, but also has had recurrent TIA a like episodes as well. Review of goals with and daughter, decision has been made to transition her to hospice with support of the primary care provider Dr. Casillas and focus on comfort rather than intervention. Recommendations/Counseling Done: 1. Aspiration pneumonia. Patient does present with hypoxia though in no acute distress. Patient unable to take medications at this point in time decision is made to focus on comfort. Transition to hospice, morphine sulfate 20 mg per ml with 5 mg every 2 hours as needed respiratory distress ordered, as well as hyoscoymine. Prescriptions provided along with comfort medication of Lorazepam 2 mg per ml with 0.25 mg every 4-6 hours as needed agitation or anxiety to have available with hospice admit which is scheduled at 09 100 next morning. Requested they picking table worker medications so hospice nurse can do training in a.m., did discuss the patient had respiratory distress could use the morphine, patient currently quite comfortable hoping this is not necessary. Hospital bed ordered also, patient was transferred back to bed and her head elevated on pillows as well as change in her pajamas. Did instruct the patient is coughing or having increased difficulty with breathing to position her on her side. acknowledges understanding. 2. dementia without behavioral disturbances. Patient is incontinent of bowel and bladder, has been is feeling quite overwhelmed with her increasing care needs. Did discuss with hospice nurse coming out tomorrow, recommended to Place Strong catheter to decrease stress and care needs. 3. Caregiver fatigue. Counseling done regarding the support that the hospice team can provide, he is fairly determined to keep her at home, did request he access his neighbors who are very supportive, his current respite care, and allow for increased caregiving from hospice team to support him. Did discuss if unable to meet care needs, there is a respite benefit to access if needed. His health is quite frail, his goal is to live long enough to oversee her care until . 4.Advanced care planning. Long discussion with patient's and daughter regarding goals of care, weighing benefits and burdens of decisions currently needing to be made, and counseling regarding the role of the hospice team. Decision was made to transition to hospice, if patient continues to be lethargic and no intake, suspect her prognosis is days to 1 week. Patient has been well-nourished up to this point in time, though she has been more dehydrated last few times they have seen her. RENE HUERTA was updated to reflect current goals, reviewed what to do if she were to pass tonight, encouraged follow-up tomorrow regarding plans. They had made arrangements with [facility], this not defaults to [facility].Reviewed medical science liaison will be available to assist with some of this planning as well as to fast track hossein if needed. Time Spent: 75 minutes spent with greater than 50% of this done in counseling regarding goals of care, symptom management, and anticipatory guidance coordination of care with PCP, hospice team, and equipment requests. Hospice to admit first thing in the morning, call was made during the end of her visit she will be here at 9:00
== END 2017-06-19 16:16 | disposition home or self-care (01) ==
LOC: PC 16:15
PROVIDERS: ATTEND Nurse Practitioner Adult Health
DX: Z51.5 Encounter for palliative care (principal); J69.0 Pneumonitis due to inhalation of food and vomit; F03.90 Unspecified dementia, unspecified severity, without behavioral disturbance, psychotic disturbance, mood disturbance, and anxiety; R15.9 Full incontinence of feces; R32 Unspecified urinary incontinence; R09.02 Hypoxemia; R53.83 Other fatigue; M62.81 Muscle weakness (generalized); Z66 Do not resuscitate
CPT/HCPCS: 99350